=== PATIENT | male | born 1995 | race Caucasian/White ===

== ENCOUNTER → 2017-06-28 | Outpatient (CLI) | payer OTHER ==
--- NOTE | 2017-06-28 09:32 | DIAGNOSTIC IMAGING REPORT ---
CHEST 2 VIEWS ROUTINE CLINICAL HISTORY: Shortness of breath COMPARISON STUDY: No previous studies for comparison. FINDINGS: The cardiac and mediastinal contours are normal. There is no evidence of focal pulmonary consolidation. There is no evidence of failure. No pleural effusions are visualized.[ IMPRESSION: No active disease in the chest. Electronically signed by: Bogdan Tirado M.D. 06/28/2017 9:31 AM Dictated Date/Time: 06/28/2017 9:31 AM
== END | disposition home or self-care (01) ==
LOC: C.RAD 08:46
PROVIDERS: ATTEND Family Medicine
DX: R06.02 Shortness of breath (principal)